=== PATIENT | female | born 2000 | race Caucasian/White ===

== ENCOUNTER 2024-08-21 02:59 | Emergency (ER) | payer OTHER ==
[~2024-08-21] VITALS: Ht 160 cm; Wt 94.3 kg
== END 2024-08-21 05:28 | disposition home or self-care (01) ==
LOC: ER 03:01
DX: O26.891 Other specified pregnancy related conditions, first trimester (principal); R42 Dizziness and giddiness; Z3A.01 Less than 8 weeks gestation of pregnancy